=== PATIENT | female | born 2000 | race African-American/Black ===

== ENCOUNTER 2020-12-15 19:49 | Emergency (ER) | payer OTHER ==
[~2020-12-15] VITALS: Ht 170.2 cm; Wt 99.8 kg
[2020-12-15 21:33] VITALS: BP 128/88; TEMP 98.1
== END 2020-12-15 21:33 | disposition home or self-care (01) ==
LOC: ED 19:49
DX: S39.012A Strain of muscle, fascia and tendon of lower back, initial encounter (principal); Z3A.09 9 weeks gestation of pregnancy
CPT/HCPCS: 99282

== ENCOUNTER 2021-04-07 15:10 | Emergency (ER) | payer OTHER | END 2021-04-07 16:38 | disposition home or self-care (01) | LOC: ED 15:10 | DX: O26.892 Other specified pregnancy related conditions, second trimester (principal); Z3A.25 25 weeks gestation of pregnancy | CPT/HCPCS: 99284 ==

== ENCOUNTER 2021-11-03 00:06 | Emergency (ER) | payer OTHER ==
[~2021-11-03] VITALS: Ht 170.2 cm; Wt 99.8 kg
[2021-11-03 01:15] LABS: PLATELET COUNT 331 K/uL (152-353)
[2021-11-03 01:19] LABS: POTASSIUM 3.7 mmol/L (3.6-5.2)
[2021-11-03 02:05] VITALS: BP 127/67; TEMP 98.1
== END 2021-11-03 02:11 | disposition home or self-care (01) ==
LOC: ED 00:06
PROVIDERS: Emergency Medicine
DX: R10.11 Right upper quadrant pain (principal); R14.1 Gas pain; N20.0 Calculus of kidney
CPT/HCPCS: 36415; 80053; 81000; 81025; 82150; 83690; 85027; 96374; 96375; 99284; J2270; J2405

== ENCOUNTER 2021-12-18 11:28 | Emergency (ER) | payer OTHER ==
[~2021-12-18] VITALS: Ht 170.2 cm; Wt 99.8 kg
[2021-12-18 11:58] LABS: PLATELET COUNT 333 K/uL (152-353)
[2021-12-18 12:08] LABS: POTASSIUM 3.8 mmol/L (3.6-5.2)
[2021-12-18 13:22] VITALS: BP 130/87; TEMP 97.6
== END 2021-12-18 13:22 | disposition home or self-care (01) ==
LOC: ED 11:28
PROVIDERS: Hospitalist
DX: R10.11 Right upper quadrant pain (principal); K82.8 Other specified diseases of gallbladder
CPT/HCPCS: 80053; 81000; 81025; 83690; 85027; 96360; 96374; 96375; 99284; J1885; J2405; Q9963

== ENCOUNTER 2022-01-07 09:29 | Outpatient (CLI) | payer OTHER | END 2022-01-07 19:58 | disposition home or self-care (01) | LOC: US 09:29 | PROVIDERS: ATTEND Family Medicine | DX: R10.9 Unspecified abdominal pain (principal); R11.2 Nausea with vomiting, unspecified; E66.9 Obesity, unspecified ==

== ENCOUNTER 2022-01-20 08:53 | Emergency (ER) | payer OTHER ==
[~2022-01-20] VITALS: Ht 170.2 cm; Wt 113.4 kg
[2022-01-20 09:20] LABS: PLATELET COUNT 316 K/uL (152-353)
[2022-01-20 09:36] LABS: POTASSIUM 3.6 mmol/L (3.6-5.2)
[2022-01-20 14:45] VITALS: BP 122/79; TEMP 97.3
== END 2022-01-20 14:45 | disposition home or self-care (01) ==
LOC: ED 08:53
PROVIDERS: Emergency Medicine
DX: K82.8 Other specified diseases of gallbladder (principal)
CPT/HCPCS: 80053; 81000; 83690; 85027; 96360; 96374; 96375; 99284

== ENCOUNTER 2022-10-21 23:33 | Emergency (ER) | payer OTHER ==
[~2022-10-21] VITALS: Ht 170.2 cm; Wt 108.9 kg
[2022-10-21 23:40] VITALS: BP 148/86; TEMP 99.3
== END 2022-10-22 01:22 | disposition home or self-care (01) ==
LOC: ED 23:33
DX: J02.0 Streptococcal pharyngitis (principal)
CPT/HCPCS: 87502; 87651; 96372; 99284; J0696; J1885; J2405

== ENCOUNTER 2023-01-07 04:00 | Emergency (ER) | payer OTHER ==
[~2023-01-07] VITALS: Ht 170.2 cm; Wt 108.9 kg
[2023-01-07 04:05] VITALS: BP 154/84; TEMP 99.9
== END 2023-01-07 04:45 | disposition home or self-care (01) ==
LOC: ED 04:00
DX: R11.2 Nausea with vomiting, unspecified (principal); R19.7 Diarrhea, unspecified; K52.89 Other specified noninfective gastroenteritis and colitis
CPT/HCPCS: 96372; 99283; J2405